=== PATIENT | male | born 1970 | race Hispanic/Latino ===

== ENCOUNTER 2018-03-01 12:12 | Day surgery (SDC) | payer OTHER ==
[2018-02-21 08:59] VITALS: BMI 35.7
[2018-03-01] MEDS ORDERED: Lactated Ringer's 1,000 ML IV SCH (13:00)
[2018-03-01] MEDS ORDERED: Propofol 10 mg/ml Inj (20 ML) ONE ×2 (13:23→14:16)
[2018-03-01] MEDS ORDERED: Lidocaine 1% Inj (20ml) IJ ONE (13:35)
[2018-03-01] MEDS ORDERED: Lidocaine 1% Inj (20ml) ONE (13:40)
[2018-03-01 15:28] VITALS: TEMP 98.2
[2018-03-01 15:43] VITALS: BP 137/84; PULSE 76; RESP 18; O2SAT 98
== END 2018-03-01 16:30 | disposition home or self-care (01) ==
LOC: SDS 12:12
PROVIDERS: ATTEND Internal Medicine Medical Oncology
DX: D47.1 Chronic myeloproliferative disease (principal)
CPT/HCPCS: 38220; J2001; J2704; J7120 ×2